=== PATIENT | male | born 1965 | race Caucasian/White ===

== ENCOUNTER 2017-07-20 13:11 | Emergency (ER) | END 2017-07-20 17:48 | disposition home or self-care (01) ==

== ENCOUNTER 2017-08-26 00:21 | Emergency (ER) | END 2017-08-26 06:37 | disposition left against medical advice (07) ==

== ENCOUNTER 2017-09-07 17:31 | Emergency (ER) | END 2017-09-08 03:25 | disposition home or self-care (01) ==